=== PATIENT | male | born 1965 | race Caucasian/White ===

== ENCOUNTER 2025-01-10 07:41 | Inpatient (IN) ==
[2025-01-10] MEDS ORDERED: IOPAMIDOL 100 ML BOTTLE IV ONE (07:42)
[2025-01-10] MEDS: 0.9 % SODIUM CHLORIDE 1,000 ML IV ONE (08:15)
[2025-01-10] MEDS: ONDANSETRON 4 MG/2 ML VIAL IV ONE (08:16)
[2025-01-10 08:41] LABS: Basophils # (Auto) 0.02 K/mcL (0.00-0.30); Basophils % (Auto) 0.1 % (0.0-2.0); Eosinophils # (Auto) 0.06 K/mcL (0.00-0.70); Eosinophils % (Auto) 0.4 % (0.0-7.0); Hematocrit 50.2 % (40.1-51.0); Hemoglobin 17.0 g/dL (13.7-17.5); Lymphocytes # (Auto) 1.46 K/mcL (1.50-4.80); Lymphocytes % (Auto) 9.4 % (15.5-49.0); Mean Corpuscular HGB Conc 33.9 g/dL (31.0-36.0); Monocytes # (Auto) 1.46 K/mcL (0.10-0.90); Monocytes % (Auto) 9.4 % (1.0-12.0); Neutrophils % (Auto) 79.8 % (38.0-78.0); Platelet Count 495 K/mcL (140-440); RBC 5.56 M/mcL (4.63-6.08); WBC 15.5 K/mcL (4.5-11.0)
[2025-01-10 08:47] LABS: Bacteria,Urine Few /hpf (0); Bilirubin,Urine Negative (Negative); Color,Urine Yellow; Glucose,Urine (UA) Negative (Negative); Ketones,Urine 40 mg/dL (Negative); Leukocyte Esterase,Urine Negative /uL (Negative); Mucus,Urine Many /hpf; PH,Urine 6.0 (5.0-9.0); Protein,Urine 100 mg/dL (Negative); Specific Gravity,Urine 1.025 (1.000-1.035); Urine Amorphous Crystals Few /hpf; Urobilinogen,Urine Normal
[2025-01-10 09:14] LABS: ALT/SGPT 43 U/L (<40); AST/SGOT 43 U/L (<40); Albumin 3.5 gm/dL (3.2-5.2); Albumin/Globulin Ratio 0.8 (1.0-2.3); Alkaline Phosphatase 87 U/L (39-117); Anion Gap 14.0 (8.0-16.0); Bilirubin,Total 0.7 mg/dL (0.1-1.0); Blood Urea Nitrogen 12 mg/dL (6-20); Calcium 9.4 mg/dL (8.6-10.4); Carbon Dioxide 24 mmol/L (22-30); Chloride 98 mmol/L (96-108); Globulin 4.6 gm/dL (2.2-3.7); Glucose 111 mg/dL (70-105); Potassium 3.8 mmol/L (3.3-5.1); Sodium 136 mmol/L (133-145)
[2025-01-10] MEDS: PIPERACILLIN SODIUM/TAZOBACTAM 4.5 GM in DEXTROSE 5% IN WATER 50 ML IV ONE (10:24)
[2025-01-10] MEDS: MIDAZOLAM 5 MG/5 ML VIAL IV ONE (12:21)
[2025-01-10] MEDS: fentaNYL 100 MCG/2 ML VIAL IV ONE (12:22)
[2025-01-10] MEDS ORDERED: ONDANSETRON 4 MG/2 ML VIAL IV PRN (14:05)
[2025-01-10 14:47] LABS: INR 1.0 (0.9-1.1); Prothrombin Time 14.2 sec (11.9-14.5)
[2025-01-10] MEDS: 0.9 % SODIUM CHLORIDE 1,000 ML IV SCH (14:50)
[2025-01-10] MEDS: PIPERACILLIN SODIUM/TAZOBACTAM 4.5 GM in DEXTROSE 5% IN WATER 100 ML IV SCH ×2 (15:48→16:16)
[2025-01-11] MEDS: HYDROmorphone 0.5 MG/0.5 ML SYRINGE IV PRN (03:43)
[2025-01-11 06:11] LABS: Basophils # (Auto) 0.03 K/mcL (0.00-0.30); Basophils % (Auto) 0.2 % (0.0-2.0); Eosinophils # (Auto) 0.09 K/mcL (0.00-0.70); Eosinophils % (Auto) 0.6 % (0.0-7.0); Hematocrit 41.9 % (40.1-51.0); Hemoglobin 14.1 g/dL (13.7-17.5); Lymphocytes # (Auto) 1.64 K/mcL (1.50-4.80); Lymphocytes % (Auto) 10.7 % (15.5-49.0); Mean Corpuscular HGB Conc 33.7 g/dL (31.0-36.0); Monocytes # (Auto) 1.29 K/mcL (0.10-0.90); Monocytes % (Auto) 8.4 % (1.0-12.0); Neutrophils % (Auto) 79.5 % (38.0-78.0); Platelet Count 393 K/mcL (140-440); RBC 4.60 M/mcL (4.63-6.08); WBC 15.3 K/mcL (4.5-11.0)
[2025-01-11 06:51] LABS: ALT/SGPT 30 U/L (<40); AST/SGOT 30 U/L (<40); Albumin 2.7 gm/dL (3.2-5.2); Albumin/Globulin Ratio 0.8 (1.0-2.3); Alkaline Phosphatase 67 U/L (39-117); Anion Gap 11.0 (8.0-16.0); Bilirubin,Direct 0.3 mg/dL (<0.3); Bilirubin,Total 0.5 mg/dL (0.1-1.0); Blood Urea Nitrogen 8 mg/dL (6-20); Calcium 8.2 mg/dL (8.6-10.4); Carbon Dioxide 22 mmol/L (22-30); Chloride 102 mmol/L (96-108); Globulin 3.5 gm/dL (2.2-3.7); Glucose 124 mg/dL (70-105); Phosphorous 3.1 mg/dL (2.5-4.5); Potassium 3.8 mmol/L (3.3-5.1); Sodium 135 mmol/L (133-145); Triglycerides 71 mg/dL (<150); Uric Acid 3.1 mg/dL (2.5-8.0)
[2025-01-11] MEDS: POLYETHYLENE GLYCOL 3350 17 GM PACKET PO SCH (14:01)
[2025-01-12 06:25] LABS: Basophils # (Auto) 0.03 K/mcL (0.00-0.30); Basophils % (Auto) 0.2 % (0.0-2.0); Eosinophils # (Auto) 0.13 K/mcL (0.00-0.70); Eosinophils % (Auto) 0.9 % (0.0-7.0); Hematocrit 42.0 % (40.1-51.0); Hemoglobin 14.0 g/dL (13.7-17.5); Lymphocytes # (Auto) 1.78 K/mcL (1.50-4.80); Lymphocytes % (Auto) 12.9 % (15.5-49.0); Mean Corpuscular HGB Conc 33.3 g/dL (31.0-36.0); Monocytes # (Auto) 1.22 K/mcL (0.10-0.90); Monocytes % (Auto) 8.8 % (1.0-12.0); Neutrophils % (Auto) 76.5 % (38.0-78.0); Platelet Count 360 K/mcL (140-440); RBC 4.58 M/mcL (4.63-6.08); WBC 13.8 K/mcL (4.5-11.0)
[2025-01-12 06:56] LABS: ALT/SGPT 31 U/L (<40); AST/SGOT 30 U/L (<40); Albumin 2.8 gm/dL (3.2-5.2); Albumin/Globulin Ratio 0.8 (1.0-2.3); Alkaline Phosphatase 72 U/L (39-117); Anion Gap 10.0 (8.0-16.0); Bilirubin,Direct 0.3 mg/dL (<0.3); Bilirubin,Total 0.6 mg/dL (0.1-1.0); Blood Urea Nitrogen 4 mg/dL (6-20); Calcium 8.2 mg/dL (8.6-10.4); Carbon Dioxide 23 mmol/L (22-30); Chloride 101 mmol/L (96-108); Globulin 3.5 gm/dL (2.2-3.7); Glucose 106 mg/dL (70-105); Phosphorous 3.1 mg/dL (2.5-4.5); Potassium 3.7 mmol/L (3.3-5.1); Sodium 134 mmol/L (133-145); Triglycerides 70 mg/dL (<150); Uric Acid 2.5 mg/dL (2.5-8.0)
[2025-01-12] MEDS ORDERED: IOPAMIDOL 100 ML BOTTLE IV ONE (08:24)
[2025-01-12] MEDS ORDERED: TPN PER PHARMACY IV SCH (12:45)
[2025-01-12] MEDS ORDERED: SODIUM CHLORIDE IRRIG SOLUTION 250 ML BOTTLE IRR ONE (14:10)
[2025-01-12] MEDS ORDERED: HEPARIN 10 UNITS/ML 5ML FLUSH IV ONE (14:10)
[2025-01-12] MEDS: ACETAMINOPHEN 1,000 MG/100 ML BAG IV SCH (14:23)
[2025-01-12] MEDS: metroNIDAZOLE 500 MG/100 ML BAG IV SCH (14:34)
[2025-01-12] MEDS: CIPROFLOXACIN 400 MG/200 ML BAG IV SCH (15:13)
[2025-01-12] MEDS: 0.9 % SODIUM CHLORIDE 10 ML SYRINGE IV SCH (20:34)
[2025-01-12] MEDS: HEPARIN 10 UNITS/ML 5ML FLUSH IV SCH ×2 (20:34)
[2025-01-13 06:46] LABS: Basophils # (Auto) 0.03 K/mcL (0.00-0.30); Basophils % (Auto) 0.3 % (0.0-2.0); Eosinophils # (Auto) 0.18 K/mcL (0.00-0.70); Eosinophils % (Auto) 1.7 % (0.0-7.0); Hematocrit 39.8 % (40.1-51.0); Hemoglobin 13.4 g/dL (13.7-17.5); Lymphocytes # (Auto) 1.44 K/mcL (1.50-4.80); Lymphocytes % (Auto) 13.8 % (15.5-49.0); Mean Corpuscular HGB Conc 33.7 g/dL (31.0-36.0); Monocytes # (Auto) 1.35 K/mcL (0.10-0.90); Monocytes % (Auto) 12.9 % (1.0-12.0); Neutrophils % (Auto) 70.9 % (38.0-78.0); Platelet Count 344 K/mcL (140-440); RBC 4.37 M/mcL (4.63-6.08); WBC 10.4 K/mcL (4.5-11.0)
[2025-01-13 06:52] LABS: ALT/SGPT 24 U/L (<40); AST/SGOT 26 U/L (<40); Albumin 2.6 gm/dL (3.2-5.2); Albumin/Globulin Ratio 0.8 (1.0-2.3); Alkaline Phosphatase 62 U/L (39-117); Anion Gap 8.0 (8.0-16.0); Bilirubin,Direct 0.3 mg/dL (<0.3); Bilirubin,Total 0.5 mg/dL (0.1-1.0); Blood Urea Nitrogen 3 mg/dL (6-20); Calcium 8.2 mg/dL (8.6-10.4); Carbon Dioxide 25 mmol/L (22-30); Chloride 102 mmol/L (96-108); Globulin 3.4 gm/dL (2.2-3.7); Glucose 103 mg/dL (70-105); Phosphorous 3.0 mg/dL (2.5-4.5); Potassium 3.6 mmol/L (3.3-5.1); Sodium 135 mmol/L (133-145); Triglycerides 60 mg/dL (<150); Uric Acid 2.9 mg/dL (2.5-8.0)
[2025-01-13] MEDS: SODIUM CHLORIDE IV SCH (15:37)
[2025-01-13] MEDS: CALCIUM GLUCONATE IV SCH (15:37)
[2025-01-13] MEDS: MAGNESIUM SULFATE IV SCH (15:37)
[2025-01-13] MEDS: [UNRECOGNIZED DRUG - OTHER] IV SCH (15:37)
[2025-01-13] MEDS: TPN PER PHARMACY IV SCH (15:38)
[2025-01-13] MEDS: 0.9 % SODIUM CHLORIDE 1,000 ML IV SCH (15:38)
[2025-01-13] MEDS: FAT EMULSION 20% 250 ML IV SCH (17:56)
[2025-01-13] MEDS: INSULIN LISPRO 1 UNIT/0.01 ML UNIT SQ SCH (17:57)
[2025-01-14] MEDS: CALCIUM GLUCONATE IV SCH ×2 (03:00→16:00)
[2025-01-14] MEDS: [UNRECOGNIZED DRUG - OTHER] IV SCH (03:00)
[2025-01-14] MEDS: SODIUM CHLORIDE IV SCH ×2 (03:00→16:00)
[2025-01-14] MEDS: MAGNESIUM SULFATE IV SCH ×2 (03:00→16:00)
[2025-01-14 07:04] LABS: ALT/SGPT 25 U/L (<40); AST/SGOT 25 U/L (<40); Albumin 2.9 gm/dL (3.2-5.2); Albumin/Globulin Ratio 0.8 (1.0-2.3); Alkaline Phosphatase 78 U/L (39-117); Anion Gap 11.0 (8.0-16.0); Bilirubin,Direct 0.3 mg/dL (<0.3); Bilirubin,Total 0.5 mg/dL (0.1-1.0); Blood Urea Nitrogen 2 mg/dL (6-20); Calcium 8.4 mg/dL (8.6-10.4); Carbon Dioxide 23 mmol/L (22-30); Chloride 102 mmol/L (96-108); Globulin 3.7 gm/dL (2.2-3.7); Glucose 139 mg/dL (70-105); Phosphorous 2.7 mg/dL (2.5-4.5); Potassium 3.4 mmol/L (3.3-5.1); Sodium 136 mmol/L (133-145); Triglycerides 54 mg/dL (<150); Uric Acid 2.8 mg/dL (2.5-8.0)
[2025-01-14] MEDS ORDERED: PROPOFOL 200 MG/20 ML VIAL IV ONE ×2 (08:47→14:50)
[2025-01-14] MEDS ORDERED: fentaNYL 100 MCG/2 ML VIAL ONE (08:47)
[2025-01-14] MEDS ORDERED: DEXAMETHASONE 10 MG/ML VIAL ONE (08:48)
[2025-01-14] MEDS ORDERED: LIDOCAINE 2% PF 5 ML VIAL ONE ×2 (08:48→11:45)
[2025-01-14] MEDS ORDERED: GLYCOPYRROLATE 0.2 MG/ML VIAL IV ONE (08:48)
[2025-01-14] MEDS ORDERED: ONDANSETRON 4 MG/2 ML VIAL ONE (08:48)
[2025-01-14] MEDS ORDERED: SUCCINYLCHOLINE 200 MG/10 ML VIAL IV ONE (08:49)
[2025-01-14] MEDS ORDERED: ROCURONIUM 10 MG/ML ML IV ONE ×2 (08:49→13:00)
[2025-01-14] MEDS ORDERED: MAGNESIUM SULFATE 2 GM/50 ML BAG IV ONE (11:45)
[2025-01-14] MEDS ORDERED: BUPIVACAINE PF 0.5% 10 ML VIAL ONE ×2 (11:46→11:47)
[2025-01-14] MEDS ORDERED: BUPIVACAINE LIPOSOMAL 1.3% 10 ML VIAL IJ ONE (11:47)
[2025-01-14] MEDS ORDERED: HYDROmorphone 0.5 MG/0.5 ML SYRINGE ONE ×3 (12:34→14:51)
[2025-01-14] MEDS ORDERED: PHENYLephrine 1 MG/10 ML SYRINGE (ANEST) ONE (13:03)
[2025-01-14] MEDS ORDERED: SUGAMMADEX SODIUM 200 MG/2 ML VIAL IV ONE ×2 (13:37→13:56)
[2025-01-14] MEDS ORDERED: IPRATROPIUM/ALBUTEROL 3 ML AMPUL.NEB NEB PRN (14:37)
[2025-01-14] MEDS ORDERED: LACTATED RINGERS 250 ML IV PRN (14:37)
[2025-01-14] MEDS ORDERED: HYDROmorphone 0.5 MG/0.5 ML SYRINGE IV PRN (14:37)
[2025-01-14] MEDS ORDERED: MEPERIDINE 25 MG/ML VIAL IV PRN (14:37)
[2025-01-14] MEDS ORDERED: METOPROLOL TARTRATE 5 MG/5 ML VIAL IV PRN (14:37)
[2025-01-14] MEDS ORDERED: ONDANSETRON 4 MG/2 ML VIAL IV PRN (14:37)
[2025-01-14] MEDS ORDERED: NALOXONE HCL 0.4 MG/ML VIAL IV PRN (14:37)
[2025-01-14] MEDS ORDERED: BENZOCAINE/MENTHOL 1 LOZENGE PO PRN (14:37)
[2025-01-14] MEDS ORDERED: hydrALAZINE 20 MG/ML VIAL ONE (14:51)
[2025-01-14] MEDS: ACETAMINOPHEN 1,000 MG/100 ML BAG IV ONE (15:05)
[2025-01-14] MEDS: LACTATED RINGERS 1,000 ML IV SCH (15:37)
[2025-01-14] MEDS: fentaNYL 100 MCG/2 ML VIAL IV PRN (15:39)
[2025-01-14] MEDS: METHOCARBAMOL 1,000 MG/10 ML VIAL IV PRN (15:41)
[2025-01-14] MEDS: [UNRECOGNIZED DRUG - OTHER] IV SCH (16:00)
[2025-01-14] MEDS: FLUCONAZOLE 400 MG/200 ML BAG IV SCH (16:36)
[2025-01-15 07:06] LABS: ALT/SGPT 21 U/L (<40); AST/SGOT 21 U/L (<40); Albumin 2.7 gm/dL (3.2-5.2); Albumin/Globulin Ratio 0.8 (1.0-2.3); Alkaline Phosphatase 61 U/L (39-117); Anion Gap 9.0 (8.0-16.0); Bilirubin,Direct 0.2 mg/dL (<0.3); Bilirubin,Total 0.4 mg/dL (0.1-1.0); Blood Urea Nitrogen 7 mg/dL (6-20); Calcium 8.0 mg/dL (8.6-10.4); Carbon Dioxide 25 mmol/L (22-30); Chloride 103 mmol/L (96-108); Globulin 3.4 gm/dL (2.2-3.7); Glucose 197 mg/dL (70-105); Phosphorous 2.0 mg/dL (2.5-4.5); Potassium 4.0 mmol/L (3.3-5.1); Sodium 137 mmol/L (133-145); Triglycerides 42 mg/dL (<150); Uric Acid 2.8 mg/dL (2.5-8.0)
[2025-01-15] MEDS: BENZOCAINE ONE 20% 1 SPRAY TOPICAL PRN (07:54)
[2025-01-15] MEDS ORDERED: TPN PER PHARMACY IV SCH (08:30)
[2025-01-15] MEDS: FLUCONAZOLE 400 MG/200 ML BAG IV SCH (12:15)
[2025-01-15 13:17] LABS: Basophils # (Auto) 0.02 K/mcL (0.00-0.30); Basophils % (Auto) 0.1 % (0.0-2.0); Eosinophils # (Auto) 0 K/mcL (0.00-0.70); Eosinophils % (Auto) 0 % (0.0-7.0); Hematocrit 39.6 % (40.1-51.0); Hemoglobin 13.0 g/dL (13.7-17.5); Lymphocytes # (Auto) 0.88 K/mcL (1.50-4.80); Lymphocytes % (Auto) 5.8 % (15.5-49.0); Mean Corpuscular HGB Conc 32.8 g/dL (31.0-36.0); Monocytes # (Auto) 0.70 K/mcL (0.10-0.90); Monocytes % (Auto) 4.6 % (1.0-12.0); Neutrophils % (Auto) 89.0 % (38.0-78.0); Platelet Count 428 K/mcL (140-440); RBC 4.25 M/mcL (4.63-6.08); WBC 15.3 K/mcL (4.5-11.0)
[2025-01-15] MEDS: SODIUM CHLORIDE IV SCH (16:02)
[2025-01-15] MEDS: [UNRECOGNIZED DRUG - OTHER] IV SCH (16:02)
[2025-01-15] MEDS: MAGNESIUM SULFATE IV SCH (16:02)
[2025-01-15] MEDS: CALCIUM GLUCONATE IV SCH (16:02)
[2025-01-16 06:42] LABS: Basophils # (Auto) 0.02 K/mcL (0.00-0.30); Basophils % (Auto) 0.1 % (0.0-2.0); Eosinophils # (Auto) 0.01 K/mcL (0.00-0.70); Eosinophils % (Auto) 0.1 % (0.0-7.0); Hematocrit 39.0 % (40.1-51.0); Hemoglobin 13.1 g/dL (13.7-17.5); Lymphocytes # (Auto) 2.17 K/mcL (1.50-4.80); Lymphocytes % (Auto) 12.3 % (15.5-49.0); Mean Corpuscular HGB Conc 33.6 g/dL (31.0-36.0); Monocytes # (Auto) 1.51 K/mcL (0.10-0.90); Monocytes % (Auto) 8.6 % (1.0-12.0); Neutrophils % (Auto) 78.2 % (38.0-78.0); Platelet Count 419 K/mcL (140-440); RBC 4.24 M/mcL (4.63-6.08); WBC 17.6 K/mcL (4.5-11.0)
[2025-01-16 07:35] LABS: ALT/SGPT 17 U/L (<40); AST/SGOT 26 U/L (<40); Albumin 2.9 gm/dL (3.2-5.2); Albumin/Globulin Ratio 0.8 (1.0-2.3); Alkaline Phosphatase 77 U/L (39-117); Anion Gap 9.0 (8.0-16.0); Bilirubin,Direct < 0.2 mg/dL (0-0.3); Bilirubin,Total 0.3 mg/dL (0.1-1.0); Blood Urea Nitrogen 11 mg/dL (6-20); Calcium 8.3 mg/dL (8.6-10.4); Carbon Dioxide 31 mmol/L (22-30); Chloride 100 mmol/L (96-108); Globulin 3.7 gm/dL (2.2-3.7); Glucose 152 mg/dL (70-105); Phosphorous 2.5 mg/dL (2.5-4.5); Potassium 3.5 mmol/L (3.3-5.1); Sodium 140 mmol/L (133-145); Triglycerides 62 mg/dL (<150); Uric Acid 2.8 mg/dL (2.5-8.0)
[2025-01-16] MEDS: CALCIUM GLUCONATE IV SCH (15:38)
[2025-01-16] MEDS: SODIUM CHLORIDE IV SCH (15:38)
[2025-01-16] MEDS: MAGNESIUM SULFATE IV SCH (15:38)
[2025-01-16] MEDS: [UNRECOGNIZED DRUG - OTHER] IV SCH (15:38)
[2025-01-17 06:16] LABS: Basophils # (Auto) 0.01 K/mcL (0.00-0.30); Basophils % (Auto) 0.1 % (0.0-2.0); Eosinophils # (Auto) 0.09 K/mcL (0.00-0.70); Eosinophils % (Auto) 0.8 % (0.0-7.0); Hematocrit 40.1 % (40.1-51.0); Hemoglobin 13.2 g/dL (13.7-17.5); Lymphocytes # (Auto) 2.67 K/mcL (1.50-4.80); Lymphocytes % (Auto) 22.8 % (15.5-49.0); Mean Corpuscular HGB Conc 32.9 g/dL (31.0-36.0); Monocytes # (Auto) 1.32 K/mcL (0.10-0.90); Monocytes % (Auto) 11.3 % (1.0-12.0); Neutrophils % (Auto) 64.0 % (38.0-78.0); Platelet Count 432 K/mcL (140-440); RBC 4.32 M/mcL (4.63-6.08); WBC 11.7 K/mcL (4.5-11.0)
[2025-01-17 06:29] LABS: ALT/SGPT 22 U/L (<40); AST/SGOT 32 U/L (<40); Albumin 2.8 gm/dL (3.2-5.2); Albumin/Globulin Ratio 0.8 (1.0-2.3); Alkaline Phosphatase 73 U/L (39-117); Anion Gap 9.0 (8.0-16.0); Bilirubin,Direct < 0.2 mg/dL (0-0.3); Bilirubin,Total 0.3 mg/dL (0.1-1.0); Blood Urea Nitrogen 10 mg/dL (6-20); Calcium 8.3 mg/dL (8.6-10.4); Carbon Dioxide 32 mmol/L (22-30); Chloride 99 mmol/L (96-108); Globulin 3.7 gm/dL (2.2-3.7); Glucose 136 mg/dL (70-105); Phosphorous 3.4 mg/dL (2.5-4.5); Potassium 3.3 mmol/L (3.3-5.1); Sodium 140 mmol/L (133-145); Triglycerides 82 mg/dL (<150); Uric Acid 3.1 mg/dL (2.5-8.0)
[2025-01-17] MEDS: METOCLOPRAMIDE 10 MG/2 ML VIAL IV SCH (12:59)
[2025-01-17] MEDS: 0.9 % SODIUM CHLORIDE 10 ML SYRINGE IV PRN (13:00)
[2025-01-17] MEDS: MAGNESIUM SULFATE IV SCH (15:07)
[2025-01-17] MEDS: [UNRECOGNIZED DRUG - OTHER] IV SCH (15:07)
[2025-01-17] MEDS: SODIUM CHLORIDE IV SCH (15:07)
[2025-01-17] MEDS: CALCIUM GLUCONATE IV SCH (15:07)
[2025-01-18 06:48] LABS: Basophils # (Auto) 0.03 K/mcL (0.00-0.30); Basophils % (Auto) 0.3 % (0.0-2.0); Eosinophils # (Auto) 0.20 K/mcL (0.00-0.70); Eosinophils % (Auto) 1.8 % (0.0-7.0); Hematocrit 41.3 % (40.1-51.0); Hemoglobin 13.7 g/dL (13.7-17.5); Lymphocytes # (Auto) 2.28 K/mcL (1.50-4.80); Lymphocytes % (Auto) 20.3 % (15.5-49.0); Mean Corpuscular HGB Conc 33.2 g/dL (31.0-36.0); Monocytes # (Auto) 1.08 K/mcL (0.10-0.90); Monocytes % (Auto) 9.6 % (1.0-12.0); Neutrophils % (Auto) 66.0 % (38.0-78.0); Platelet Count 479 K/mcL (140-440); RBC 4.49 M/mcL (4.63-6.08); WBC 11.3 K/mcL (4.5-11.0)
[2025-01-18 07:14] LABS: ALT/SGPT 31 U/L (<40); AST/SGOT 45 U/L (<40); Albumin 3.0 gm/dL (3.2-5.2); Albumin/Globulin Ratio 0.8 (1.0-2.3); Alkaline Phosphatase 79 U/L (39-117); Anion Gap 11.0 (8.0-16.0); Bilirubin,Direct 0.2 mg/dL (<0.3); Bilirubin,Total 0.4 mg/dL (0.1-1.0); Blood Urea Nitrogen 11 mg/dL (6-20); Calcium 8.6 mg/dL (8.6-10.4); Carbon Dioxide 30 mmol/L (22-30); Chloride 98 mmol/L (96-108); Globulin 4.0 gm/dL (2.2-3.7); Glucose 119 mg/dL (70-105); Phosphorous 3.6 mg/dL (2.5-4.5); Potassium 3.5 mmol/L (3.3-5.1); Sodium 139 mmol/L (133-145); Triglycerides 79 mg/dL (<150); Uric Acid 3.4 mg/dL (2.5-8.0)
[2025-01-18] MEDS: [UNRECOGNIZED DRUG - OTHER] IV SCH (15:03)
[2025-01-18] MEDS: SODIUM CHLORIDE IV SCH (15:03)
[2025-01-18] MEDS: MAGNESIUM SULFATE IV SCH (15:03)
[2025-01-18] MEDS: CALCIUM GLUCONATE IV SCH (15:03)
[2025-01-18 23:05] LABS: Prealbumin 18.8 mg/dL (20.0-40.0)
[2025-01-18 23:06] LABS: Prealbumin 24.4 mg/dL (20.0-40.0)
[2025-01-19 06:35] LABS: Prealbumin 6.6 mg/dL (20.0-40.0)
[2025-01-19 07:23] LABS: ALT/SGPT 31 U/L (<40); AST/SGOT 39 U/L (<40); Albumin 3.0 gm/dL (3.2-5.2); Albumin/Globulin Ratio 0.8 (1.0-2.3); Alkaline Phosphatase 73 U/L (39-117); Anion Gap 9.0 (8.0-16.0); Bilirubin,Direct 0.3 mg/dL (<0.3); Bilirubin,Total 0.5 mg/dL (0.1-1.0); Blood Urea Nitrogen 15 mg/dL (6-20); Calcium 8.6 mg/dL (8.6-10.4); Carbon Dioxide 29 mmol/L (22-30); Chloride 101 mmol/L (96-108); Globulin 3.8 gm/dL (2.2-3.7); Glucose 128 mg/dL (70-105); Phosphorous 3.8 mg/dL (2.5-4.5); Potassium 3.8 mmol/L (3.3-5.1); Sodium 139 mmol/L (133-145); Triglycerides 86 mg/dL (<150); Uric Acid 3.9 mg/dL (2.5-8.0)
[2025-01-19 07:53] LABS: Basophils # (Auto) 0.03 K/mcL (0.00-0.30); Basophils % (Auto) 0.2 % (0.0-2.0); Eosinophils # (Auto) 0.28 K/mcL (0.00-0.70); Eosinophils % (Auto) 2.3 % (0.0-7.0); Hematocrit 41.1 % (40.1-51.0); Hemoglobin 13.5 g/dL (13.7-17.5); Lymphocytes # (Auto) 2.39 K/mcL (1.50-4.80); Lymphocytes % (Auto) 19.8 % (15.5-49.0); Mean Corpuscular HGB Conc 32.8 g/dL (31.0-36.0); Monocytes # (Auto) 1.12 K/mcL (0.10-0.90); Monocytes % (Auto) 9.3 % (1.0-12.0); Neutrophils % (Auto) 66.8 % (38.0-78.0); Platelet Count 460 K/mcL (140-440); RBC 4.42 M/mcL (4.63-6.08); WBC 12.1 K/mcL (4.5-11.0)
[2025-01-20 04:39] LABS: Basophils # (Auto) 0.04 K/mcL (0.00-0.30); Basophils % (Auto) 0.4 % (0.0-2.0); Eosinophils # (Auto) 0.34 K/mcL (0.00-0.70); Eosinophils % (Auto) 3.1 % (0.0-7.0); Hematocrit 39.5 % (40.1-51.0); Hemoglobin 12.6 g/dL (13.7-17.5); Lymphocytes # (Auto) 2.11 K/mcL (1.50-4.80); Lymphocytes % (Auto) 19.1 % (15.5-49.0); Mean Corpuscular HGB Conc 31.9 g/dL (31.0-36.0); Monocytes # (Auto) 0.98 K/mcL (0.10-0.90); Monocytes % (Auto) 8.9 % (1.0-12.0); Neutrophils % (Auto) 67.0 % (38.0-78.0); Platelet Count 400 K/mcL (140-440); RBC 4.15 M/mcL (4.63-6.08); WBC 11.0 K/mcL (4.5-11.0)
[2025-01-20 05:09] LABS: ALT/SGPT 30 U/L (<40); AST/SGOT 38 U/L (<40); Albumin 2.7 gm/dL (3.2-5.2); Albumin/Globulin Ratio 0.7 (1.0-2.3); Alkaline Phosphatase 76 U/L (39-117); Anion Gap 8.0 (8.0-16.0); Bilirubin,Direct 0.3 mg/dL (<0.3); Bilirubin,Total 0.5 mg/dL (0.1-1.0); Blood Urea Nitrogen 11 mg/dL (6-20); Calcium 8.1 mg/dL (8.6-10.4); Carbon Dioxide 23 mmol/L (22-30); Chloride 102 mmol/L (96-108); Globulin 3.7 gm/dL (2.2-3.7); Glucose 130 mg/dL (70-105); Phosphorous 3.0 mg/dL (2.5-4.5); Potassium 4.4 mmol/L (3.3-5.1); Sodium 133 mmol/L (133-145); Triglycerides 75 mg/dL (<150); Uric Acid 2.9 mg/dL (2.5-8.0)
[2025-01-20] MEDS: [UNRECOGNIZED DRUG - OTHER] IV SCH (15:52)
[2025-01-20] MEDS: MVI IV SCH (15:52)
[2025-01-20] MEDS: POTASSIUM PHOSPHATE IV SCH (15:52)
[2025-01-20] MEDS: SODIUM CHLORIDE IV SCH (15:52)
[2025-01-20] MEDS: MAGNESIUM SULFATE IV SCH (15:52)
[2025-01-21] MEDS: MAGNESIUM SULFATE IV SCH (05:48)
[2025-01-21] MEDS: SODIUM CHLORIDE IV SCH (05:48)
[2025-01-21] MEDS: POTASSIUM PHOSPHATE IV SCH (05:48)
[2025-01-21] MEDS: [UNRECOGNIZED DRUG - OTHER] IV SCH (05:48)
[2025-01-21] MEDS: MVI IV SCH (05:48)
[2025-01-21 07:09] LABS: Basophils # (Auto) 0.04 K/mcL (0.00-0.30); Basophils % (Auto) 0.4 % (0.0-2.0); Eosinophils # (Auto) 0.30 K/mcL (0.00-0.70); Eosinophils % (Auto) 3.1 % (0.0-7.0); Hematocrit 39.7 % (40.1-51.0); Hemoglobin 12.7 g/dL (13.7-17.5); Lymphocytes # (Auto) 2.02 K/mcL (1.50-4.80); Lymphocytes % (Auto) 20.8 % (15.5-49.0); Mean Corpuscular HGB Conc 32.0 g/dL (31.0-36.0); Monocytes # (Auto) 0.96 K/mcL (0.10-0.90); Monocytes % (Auto) 9.9 % (1.0-12.0); Neutrophils % (Auto) 64.2 % (38.0-78.0); Platelet Count 408 K/mcL (140-440); RBC 4.18 M/mcL (4.63-6.08); WBC 9.7 K/mcL (4.5-11.0)
[2025-01-21 09:05] LABS: ALT/SGPT 32 U/L (<40); AST/SGOT 41 U/L (<40); Albumin 2.9 gm/dL (3.2-5.2); Albumin/Globulin Ratio 0.8 (1.0-2.3); Alkaline Phosphatase 79 U/L (39-117); Anion Gap 11.0 (8.0-16.0); Bilirubin,Direct < 0.2 mg/dL (0-0.3); Bilirubin,Total 0.3 mg/dL (0.1-1.0); Blood Urea Nitrogen 10 mg/dL (6-20); Calcium 8.4 mg/dL (8.6-10.4); Carbon Dioxide 21 mmol/L (22-30); Chloride 103 mmol/L (96-108); Globulin 3.8 gm/dL (2.2-3.7); Glucose 118 mg/dL (70-105); Phosphorous 3.1 mg/dL (2.5-4.5); Potassium 4.8 mmol/L (3.3-5.1); Sodium 135 mmol/L (133-145); Triglycerides 84 mg/dL (<150); Uric Acid 2.5 mg/dL (2.5-8.0)
[2025-01-22 04:42] LABS: Basophils # (Auto) 0.05 K/mcL (0.00-0.30); Basophils % (Auto) 0.6 % (0.0-2.0); Eosinophils # (Auto) 0.27 K/mcL (0.00-0.70); Eosinophils % (Auto) 3.2 % (0.0-7.0); Hematocrit 38.4 % (40.1-51.0); Hemoglobin 12.3 g/dL (13.7-17.5); Lymphocytes # (Auto) 2.07 K/mcL (1.50-4.80); Lymphocytes % (Auto) 24.4 % (15.5-49.0); Mean Corpuscular HGB Conc 32.0 g/dL (31.0-36.0); Monocytes # (Auto) 0.85 K/mcL (0.10-0.90); Monocytes % (Auto) 10.0 % (1.0-12.0); Neutrophils % (Auto) 59.9 % (38.0-78.0); Platelet Count 391 K/mcL (140-440); RBC 4.03 M/mcL (4.63-6.08); WBC 8.5 K/mcL (4.5-11.0)
[2025-01-22 04:50] LABS: ALT/SGPT 34 U/L (<40); AST/SGOT 46 U/L (<40); Albumin 2.8 gm/dL (3.2-5.2); Albumin/Globulin Ratio 0.8 (1.0-2.3); Alkaline Phosphatase 77 U/L (39-117); Anion Gap 10.0 (8.0-16.0); Bilirubin,Direct < 0.2 mg/dL (0-0.3); Bilirubin,Total 0.4 mg/dL (0.1-1.0); Blood Urea Nitrogen 10 mg/dL (6-20); Calcium 8.5 mg/dL (8.6-10.4); Carbon Dioxide 23 mmol/L (22-30); Chloride 102 mmol/L (96-108); Globulin 3.6 gm/dL (2.2-3.7); Glucose 101 mg/dL (70-105); Phosphorous 3.5 mg/dL (2.5-4.5); Potassium 4.4 mmol/L (3.3-5.1); Sodium 135 mmol/L (133-145); Triglycerides 81 mg/dL (<150); Uric Acid 3.7 mg/dL (2.5-8.0)
[2025-01-22] MEDS: CIPROFLOXACIN 500 MG TABLET PO SCH (20:47)
[2025-01-23 04:34] LABS: ALT/SGPT 42 U/L (<40); AST/SGOT 54 U/L (<40); Albumin 3.0 gm/dL (3.2-5.2); Albumin/Globulin Ratio 0.8 (1.0-2.3); Alkaline Phosphatase 81 U/L (39-117); Anion Gap 10.0 (8.0-16.0); Bilirubin,Direct < 0.2 mg/dL (0-0.3); Bilirubin,Total 0.4 mg/dL (0.1-1.0); Blood Urea Nitrogen 10 mg/dL (6-20); Calcium 9.0 mg/dL (8.6-10.4); Carbon Dioxide 24 mmol/L (22-30); Chloride 100 mmol/L (96-108); Globulin 3.9 gm/dL (2.2-3.7); Glucose 100 mg/dL (70-105); Phosphorous 4.0 mg/dL (2.5-4.5); Potassium 4.5 mmol/L (3.3-5.1); Sodium 134 mmol/L (133-145); Triglycerides 81 mg/dL (<150); Uric Acid 4.0 mg/dL (2.5-8.0)
[2025-01-23 06:39] LABS: Basophils # (Auto) 0.06 K/mcL (0.00-0.30); Basophils % (Auto) 0.8 % (0.0-2.0); Eosinophils # (Auto) 0.25 K/mcL (0.00-0.70); Eosinophils % (Auto) 3.5 % (0.0-7.0); Hematocrit 40.7 % (40.1-51.0); Hemoglobin 13.1 g/dL (13.7-17.5); Lymphocytes # (Auto) 2.04 K/mcL (1.50-4.80); Lymphocytes % (Auto) 28.7 % (15.5-49.0); Mean Corpuscular HGB Conc 32.2 g/dL (31.0-36.0); Monocytes # (Auto) 0.85 K/mcL (0.10-0.90); Monocytes % (Auto) 12.0 % (1.0-12.0); Neutrophils % (Auto) 53.7 % (38.0-78.0); Platelet Count 411 K/mcL (140-440); RBC 4.28 M/mcL (4.63-6.08); WBC 7.1 K/mcL (4.5-11.0)
[2025-01-23 15:54] VITALS: TEMP 97.8; O2SAT 97
== END 2025-01-23 16:00 | disposition home health service (06) | DRG 329 ==
LOC: ED 07:41 → MEDSUR 14:04
PROVIDERS: ADMIT Family Medicine Adult Medicine; ATTEND Family Medicine Adult Medicine